=== PATIENT | male | born 1950 | race Caucasian/White ===

== ENCOUNTER 2022-07-19 12:19 | Inpatient (IN) | payer OTHER ==
[2022-07-19 13:05] VITALS: BMI 20.5
[2022-07-19] MEDS ORDERED: VANCOMYCIN 1 GM in D5W (PRE-DOCKED) 1,000 MG/250 ML IVPB ONE (13:17)
[2022-07-19] MEDS ORDERED: PIPERACILLIN/TAZOB 4.5 GM 4.5 GM in DEXTROSE 5%-WATER 100 ML IVPB ONE (13:17)
[2022-07-19] MEDS ORDERED: SODIUM CHLORIDE 0.9% 1000 ML INFUS.BAG IV ONE (13:18)
[2022-07-19] MEDS ORDERED: PIPERACILLIN/TAZOB 4.5 GM 4.5 GM/100 ML BAG IVPB ONE (13:30)
[2022-07-19 14:05] LABS: HEMATOCRIT 31.7 % (35.4-49); HEMOGLOBIN 10.6 GM/dL (11.7-16.9); MCH 31.6 pg (25.7-33.7); MCHC 33.4 g/dl (32.0-35.9); MEAN CELL VOLUME 94.7 fl (80-96); MEAN PLT VOLUME 7.8 fl (7.5-11.1); PLATELET COUNT 277 10^3/uL (134-434); RBC 3.35 M/mm3 (4.00-5.60); RDW 16.9 % (11.9-15.9)
[2022-07-19 14:07] LABS: VENOUS BASE EXCESS 6.4 mmol/L (-2-2); VENOUS O2 SATURATION 93.5 % (70-80); VENOUS PCO2 40.8 mmHg (38-52); VENOUS PH 7.489 (7.310-7.410)
[2022-07-19 14:11] LABS: INR 1.23 (0.83-1.09); PROTHROMBIN TIME (PATIENT) 14.2 SEC (9.7-13.0)
[2022-07-19] MEDS ORDERED: VANCOMYCIN/WATER FOR INJ (PEG) 1,000 MG/200 ML BAG IVPB ONE (14:18)
[2022-07-19 14:42] LABS: ALBUMIN 2.7 g/dl (3.4-5.0); CALCIUM 9.7 mg/dL (8.5-10.1)
[2022-07-19 14:43] LABS: BLOOD UREA NITROGEN 38.8 mg/dL (7-18)
[2022-07-19 14:45] LABS: CREATININE 0.9 mg/dL (0.55-1.3)
[2022-07-19 14:47] LABS: BILIRUBIN,TOTAL 0.3 mg/dL (0.2-1); TOT PROT 7.3 g/dl (6.4-8.2)
[2022-07-19 15:33] LABS: ANISOCYTOSIS 2+; MACROCYTOSIS 0
[2022-07-19] MEDS ORDERED: LACTATED RINGERS SOLUTION 1,000 ML/1,000 ML INFUS.BAG IV SCH (18:15)
[2022-07-19 19:14] LABS: EPI CELLS 7 /uL (0-25.1); HYALINE CASTS 1 /uL (0-3.1); PH,URINE 5.5 (5.0-8.0); URINE APPEARANCE CLEAR; URINE BACTERIA 5 /uL (0-1359); URINE BILIRUBIN NEGATIVE (NEGATIVE); URINE COLOR YELLOW; URINE GLUCOSE (UA) NEGATIVE (NEGATIVE); URINE KETONE NEGATIVE (NEGATIVE); URINE LEUK ESTERASE TRACE (NEGATIVE); URINE NITRITE NEGATIVE (NEGATIVE); URINE PROTEIN TRACE (NEGATIVE); URINE RBC 49 /uL (0-23.9); URINE UROBILINOGEN 0.2 mg/dL (0.2-1.0); URINE WBC 44 /uL (0-25.8)
[2022-07-19] MEDS ORDERED: DEXTROSE 5%-NORMAL SALINE 1,000 ML IV SCH (20:45)
[2022-07-19] MEDS ORDERED: PIPERACILLIN/TAZOB 3.375 GM 3.375 GM/50 ML BAG IVPB ONE (23:55)
[2022-07-19] MEDS ORDERED: MELATONIN 5 MG TABLETS NR PRN (23:58)
[2022-07-20] MEDS: PIPERACILLIN/TAZOB 3.375 GM 3.375 GM in DEXTROSE 5%-WATER - 50 ML IVPB SCH ×4 (00:22→17:20)
[2022-07-20] MEDS: ALBUTEROL SO4 2.5/IPRATROPIUM 0.5 INH SOL 3 ML VIAL.NEB. NEB SCH ×5 (00:22→19:48)
[2022-07-20] MEDS ORDERED: ACETAMINOPHEN INJECTION 100 ML IVPB ONE (01:53)
[2022-07-20] MEDS: ACETAMINOPHEN 1000 MG/100 ML BAG IVPB PRN ×2 (01:53→14:00)
[2022-07-20] MEDS ORDERED: ENOXAPARIN NA (PORCINE) 80 MG/0.8 ML DISP.SYRIN SQ ONE (01:55)
[2022-07-20] MEDS: ENOXAPARIN NA (PORCINE) 80 MG/0.8 ML DISP.SYRIN SQ SCH ×2 (01:56→13:45)
[2022-07-20] MEDS ORDERED: VANCOMYCIN/WATER FOR INJ (PEG) 1,000 MG/200 ML BAG IVPB SCH (02:00)
[2022-07-20] MEDS ORDERED: VANCOMYCIN/WATER FOR INJ (PEG) 1,000 MG/200 ML BAG IVPB ONE (03:19)
[2022-07-20] MEDS ORDERED: ALBUTEROL SO4 2.5/IPRATROPIUM 0.5 INH SOL 3 ML VIAL.NEB. NEB ONE (06:45)
[2022-07-20] MEDS ORDERED: PIPERACILLIN/TAZOB 3.375 GM 3.375 GM/50 ML BAG IVPB ONE (07:54)
[2022-07-20] MEDS ORDERED: PIPERACILLIN/TAZOB 3.375 GM 3.375 GM in DEXTROSE 5%-WATER - 50 ML IVPB SCH (08:00)
[2022-07-20] MEDS: ARTIFICIAL TEARS (POLYVINYL ALCOHOL) OPTH DROPS OU SCH ×3 (08:00→23:05)
[2022-07-20 08:33] LABS: HEMATOCRIT 29.5 % (35.4-49); MCHC 34.1 g/dl (32.0-35.9); MEAN CELL VOLUME 94.1 fl (80-96); PLATELET COUNT 260 10^3/uL (134-434); RBC 3.13 M/mm3 (4.00-5.60); RDW 16.4 % (11.9-15.9); WHITE BLOOD COUNT 5.4 K/mm3 (4.0-10.0)
[2022-07-20 08:49] LABS: CALCIUM 9.4 mg/dL (8.5-10.1)
[2022-07-20 08:50] LABS: BLOOD UREA NITROGEN 35.1 mg/dL (7-18)
[2022-07-20 08:53] LABS: CREATININE 0.9 mg/dL (0.55-1.3)
[2022-07-20 09:14] LABS: ANISOCYTOSIS 0; HELMET CELLS 0; HOWELL-JOLLY BODIES 0; MACROCYTOSIS 0; OVALOCYTE 0; ROULEAU 0; SICKELED CELLS 0; TARGET CELLS 0; TEAR DROP CELLS 0; TOXIC GRANULATION 0
[2022-07-20] MEDS ORDERED: buPROPion HCL 75 MG TABLET GT SCH (10:00)
[2022-07-20] MEDS: MULTIVIT-MINERALS ORAL LIQUID GT SCH (11:04)
[2022-07-20] MEDS: SENNOSIDES 8.8 MG/5 ML SYRUP GT SCH ×2 (11:04→23:04)
[2022-07-20] MEDS: CARBIDOPA/LEVODOPA 25/100 TABLET (FP) GT SCH ×3 (14:01→23:06)
[2022-07-20] MEDS: VANCOMYCIN 1 GM in D5W (PRE-DOCKED) 1,000 MG/250 ML IVPB SCH ×2 (16:04→16:06)
[2022-07-20] MEDS: D5-1/2NS+10 MEQ KCL - 10 MEQ/1,000 ML INFUS.BAG IV SCH (18:35)
[2022-07-20] MEDS: ENOXAPARIN NA (PORCINE) 60 MG/0.6 ML DISP.SYRIN SQ SCH (23:05)
[2022-07-20] MEDS: POLYETHYLENE GLYCOL (HEALTHYLAX) 3350 17 GM PACKET GT SCH (23:06)
[2022-07-21] MEDS: PIPERACILLIN/TAZOB 3.375 GM 3.375 GM in DEXTROSE 5%-WATER - 50 ML IVPB SCH ×3 (01:36→18:52)
[2022-07-21] MEDS: D5-1/2NS+10 MEQ KCL - 10 MEQ/1,000 ML INFUS.BAG IV SCH ×2 (06:25→18:55)
[2022-07-21] MEDS: ARTIFICIAL TEARS (POLYVINYL ALCOHOL) OPTH DROPS OU SCH ×3 (06:54→22:44)
[2022-07-21] MEDS: ALBUTEROL SO4 2.5/IPRATROPIUM 0.5 INH SOL 3 ML VIAL.NEB. NEB SCH ×4 (08:15→19:56)
[2022-07-21 10:26] LABS: MAGNESIUM 2.3 mg/dL (1.8-2.4)
[2022-07-21 10:29] LABS: CALCIUM 9.1 mg/dL (8.5-10.1)
[2022-07-21 10:30] LABS: ALBUMIN 2.5 g/dl (3.4-5.0); BLOOD UREA NITROGEN 25.6 mg/dL (7-18)
[2022-07-21 10:33] LABS: CREATININE 0.8 mg/dL (0.55-1.3)
[2022-07-21 10:34] LABS: BILIRUBIN,TOTAL 0.6 mg/dL (0.2-1)
[2022-07-21] MEDS: COLLAGENASE CLOSTRIDIUM HIST. 30 GRAMS TUBE TP SCH (10:51)
[2022-07-21] MEDS: BACITRACIN ZINC 15 GM TUBE TOPICAL OINTMENT TP SCH (10:51)
[2022-07-21] MEDS: CARBIDOPA/LEVODOPA 25/100 TABLET (FP) GT SCH ×4 (10:52→22:42)
[2022-07-21] MEDS: MULTIVIT-MINERALS ORAL LIQUID GT SCH (10:52)
[2022-07-21] MEDS: ENOXAPARIN NA (PORCINE) 60 MG/0.6 ML DISP.SYRIN SQ SCH ×2 (10:53→22:43)
[2022-07-21] MEDS: SENNOSIDES 8.8 MG/5 ML SYRUP GT SCH ×2 (11:09→22:43)
[2022-07-21] MEDS: AMINO ACIDS/PROTEIN HYDROLYS 30 ML LIQUID.PKT GT SCH (18:52)
[2022-07-21] MEDS: POLYETHYLENE GLYCOL (HEALTHYLAX) 3350 17 GM PACKET GT SCH (22:43)
[2022-07-22] MEDS: PIPERACILLIN/TAZOB 3.375 GM 3.375 GM in DEXTROSE 5%-WATER - 50 ML IVPB SCH ×3 (02:03→17:53)
[2022-07-22] MEDS: ARTIFICIAL TEARS (POLYVINYL ALCOHOL) OPTH DROPS OU SCH ×3 (06:58→21:56)
[2022-07-22] MEDS: ALBUTEROL SO4 2.5/IPRATROPIUM 0.5 INH SOL 3 ML VIAL.NEB. NEB SCH ×4 (07:35→20:02)
[2022-07-22] MEDS: SENNOSIDES 8.8 MG/5 ML SYRUP GT SCH ×2 (09:31→21:56)
[2022-07-22] MEDS: MULTIVIT-MINERALS ORAL LIQUID GT SCH (09:31)
[2022-07-22] MEDS: AMINO ACIDS/PROTEIN HYDROLYS 30 ML LIQUID.PKT GT SCH ×3 (09:31→17:52)
[2022-07-22] MEDS: CARBIDOPA/LEVODOPA 25/100 TABLET (FP) GT SCH ×4 (09:32→21:56)
[2022-07-22] MEDS: ASCORBIC ACID 500 MG TABLET (FP) GT SCH (09:32)
[2022-07-22] MEDS: COLLAGENASE CLOSTRIDIUM HIST. 30 GRAMS TUBE TP SCH (09:33)
[2022-07-22] MEDS: BACITRACIN ZINC 15 GM TUBE TOPICAL OINTMENT TP SCH (09:34)
[2022-07-22] MEDS: ENOXAPARIN NA (PORCINE) 60 MG/0.6 ML DISP.SYRIN SQ SCH ×2 (10:12→21:56)
[2022-07-22] MEDS: D5-1/2NS+10 MEQ KCL - 10 MEQ/1,000 ML INFUS.BAG IV SCH (17:52)
[2022-07-22] MEDS: POLYETHYLENE GLYCOL (HEALTHYLAX) 3350 17 GM PACKET GT SCH (21:56)
[2022-07-23] MEDS: D5-1/2NS+10 MEQ KCL - 10 MEQ/1,000 ML INFUS.BAG IV SCH (00:17)
[2022-07-23] MEDS ORDERED: PIPERACILLIN/TAZOBACTAM 3.375 GM VIAL IVPB ONE (02:48)
[2022-07-23] MEDS: PIPERACILLIN/TAZOB 3.375 GM 3.375 GM in DEXTROSE 5%-WATER - 50 ML IVPB SCH ×2 (02:53→09:34)
[2022-07-23] MEDS: ARTIFICIAL TEARS (POLYVINYL ALCOHOL) OPTH DROPS OU SCH ×3 (06:23→22:55)
[2022-07-23] MEDS: ALBUTEROL SO4 2.5/IPRATROPIUM 0.5 INH SOL 3 ML VIAL.NEB. NEB SCH ×4 (07:42→19:41)
[2022-07-23 08:57] LABS: HEMATOCRIT 31.4 % (35.4-49); HEMOGLOBIN 10.7 GM/dL (11.7-16.9); MCH 31.8 pg (25.7-33.7); MEAN CELL VOLUME 93.5 fl (80-96); MEAN PLT VOLUME 8.1 fl (7.5-11.1); PLATELET COUNT 238 10^3/uL (134-434); RBC 3.35 M/mm3 (4.00-5.60); RDW 15.9 % (11.9-15.9)
[2022-07-23 09:18] LABS: ALBUMIN 2.6 g/dl (3.4-5.0); BLOOD UREA NITROGEN 25.5 mg/dL (7-18); CALCIUM 9.3 mg/dL (8.5-10.1)
[2022-07-23 09:22] LABS: BILIRUBIN,TOTAL 0.2 mg/dL (0.2-1); CREATININE 0.7 mg/dL (0.55-1.3); TOT PROT 6.8 g/dl (6.4-8.2)
[2022-07-23] MEDS: MULTIVIT-MINERALS ORAL LIQUID GT SCH (09:26)
[2022-07-23] MEDS: AMINO ACIDS/PROTEIN HYDROLYS 30 ML LIQUID.PKT GT SCH ×3 (09:26→17:50)
[2022-07-23] MEDS: SENNOSIDES 8.8 MG/5 ML SYRUP GT SCH ×2 (09:27→22:56)
[2022-07-23] MEDS: ASCORBIC ACID 500 MG TABLET (FP) GT SCH (09:27)
[2022-07-23] MEDS: CARBIDOPA/LEVODOPA 25/100 TABLET (FP) GT SCH ×4 (09:27→22:56)
[2022-07-23] MEDS: ENOXAPARIN NA (PORCINE) 60 MG/0.6 ML DISP.SYRIN SQ SCH ×2 (09:29→22:56)
[2022-07-23] MEDS: COLLAGENASE CLOSTRIDIUM HIST. 30 GRAMS TUBE TP SCH (10:48)
[2022-07-23] MEDS: BACITRACIN ZINC 15 GM TUBE TOPICAL OINTMENT TP SCH (10:48)
[2022-07-23] MEDS: NEUPRO TD SCH (17:48)
[2022-07-23] MEDS: AMOX TR/POTASSIUM CLAVULANATE 400 MG/5 ML BOTTLE GT SCH (17:50)
[2022-07-23] MEDS: POLYETHYLENE GLYCOL (HEALTHYLAX) 3350 17 GM PACKET GT SCH (22:56)
[2022-07-24] MEDS: ARTIFICIAL TEARS (POLYVINYL ALCOHOL) OPTH DROPS OU SCH ×3 (06:52→22:29)
[2022-07-24] MEDS: ALBUTEROL SO4 2.5/IPRATROPIUM 0.5 INH SOL 3 ML VIAL.NEB. NEB SCH ×4 (07:48→20:17)
[2022-07-24] MEDS: AMINO ACIDS/PROTEIN HYDROLYS 30 ML LIQUID.PKT GT SCH ×3 (09:19→18:21)
[2022-07-24] MEDS: CARBIDOPA/LEVODOPA 25/100 TABLET (FP) GT SCH ×4 (09:19→22:30)
[2022-07-24] MEDS: NEUPRO TD SCH (09:20)
[2022-07-24] MEDS: MULTIVIT-MINERALS ORAL LIQUID GT SCH (09:20)
[2022-07-24] MEDS: BACITRACIN ZINC 15 GM TUBE TOPICAL OINTMENT TP SCH (09:20)
[2022-07-24] MEDS: COLLAGENASE CLOSTRIDIUM HIST. 30 GRAMS TUBE TP SCH (09:21)
[2022-07-24] MEDS: ASCORBIC ACID 500 MG TABLET (FP) GT SCH (09:21)
[2022-07-24] MEDS: SENNOSIDES 8.8 MG/5 ML SYRUP GT SCH ×2 (09:21→22:30)
[2022-07-24] MEDS: AMOX TR/POTASSIUM CLAVULANATE 400 MG/5 ML BOTTLE GT SCH ×2 (09:23→18:21)
[2022-07-24] MEDS: ENOXAPARIN NA (PORCINE) 60 MG/0.6 ML DISP.SYRIN SQ SCH ×2 (09:24→22:29)
[2022-07-24] MEDS: POLYETHYLENE GLYCOL (HEALTHYLAX) 3350 17 GM PACKET GT SCH (22:30)
[2022-07-25] MEDS: ARTIFICIAL TEARS (POLYVINYL ALCOHOL) OPTH DROPS OU SCH ×3 (07:29→23:02)
[2022-07-25] MEDS: ALBUTEROL SO4 2.5/IPRATROPIUM 0.5 INH SOL 3 ML VIAL.NEB. NEB SCH ×2 (07:45→11:56)
[2022-07-25] MEDS: AMOX TR/POTASSIUM CLAVULANATE 400 MG/5 ML BOTTLE GT SCH ×2 (10:12→18:01)
[2022-07-25] MEDS: CARBIDOPA/LEVODOPA 25/100 TABLET (FP) GT SCH ×4 (10:12→23:02)
[2022-07-25] MEDS: AMINO ACIDS/PROTEIN HYDROLYS 30 ML LIQUID.PKT GT SCH ×3 (10:12→18:01)
[2022-07-25] MEDS: ASCORBIC ACID 500 MG TABLET (FP) GT SCH (10:12)
[2022-07-25] MEDS: COLLAGENASE CLOSTRIDIUM HIST. 30 GRAMS TUBE TP SCH (10:13)
[2022-07-25] MEDS: ENOXAPARIN NA (PORCINE) 60 MG/0.6 ML DISP.SYRIN SQ SCH ×2 (10:13→23:02)
[2022-07-25] MEDS: MULTIVIT-MINERALS ORAL LIQUID GT SCH (10:13)
[2022-07-25] MEDS: BACITRACIN ZINC 15 GM TUBE TOPICAL OINTMENT TP SCH (10:17)
[2022-07-25] MEDS: NEUPRO TD SCH (10:17)
[2022-07-25] MEDS: SENNOSIDES 8.8 MG/5 ML SYRUP GT SCH ×2 (10:57→23:02)
[2022-07-25] MEDS: POLYETHYLENE GLYCOL (HEALTHYLAX) 3350 17 GM PACKET GT SCH (23:02)
[2022-07-26] MEDS: ARTIFICIAL TEARS (POLYVINYL ALCOHOL) OPTH DROPS OU SCH ×3 (06:44→21:26)
[2022-07-26] MEDS: MULTIVIT-MINERALS ORAL LIQUID GT SCH (09:40)
[2022-07-26] MEDS: CARBIDOPA/LEVODOPA 25/100 TABLET (FP) GT SCH ×4 (09:43→21:34)
[2022-07-26] MEDS: NEUPRO TD SCH (09:43)
[2022-07-26] MEDS: SENNOSIDES 8.8 MG/5 ML SYRUP GT SCH ×2 (09:43→21:34)
[2022-07-26] MEDS: BACITRACIN ZINC 15 GM TUBE TOPICAL OINTMENT TP SCH (09:44)
[2022-07-26] MEDS: AMINO ACIDS/PROTEIN HYDROLYS 30 ML LIQUID.PKT GT SCH ×3 (09:44→17:44)
[2022-07-26] MEDS: COLLAGENASE CLOSTRIDIUM HIST. 30 GRAMS TUBE TP SCH (09:45)
[2022-07-26] MEDS: ENOXAPARIN NA (PORCINE) 60 MG/0.6 ML DISP.SYRIN SQ SCH ×2 (09:45→21:35)
[2022-07-26] MEDS: ASCORBIC ACID 500 MG TABLET (FP) GT SCH (09:45)
[2022-07-26] MEDS: AMOX TR/POTASSIUM CLAVULANATE 400 MG/5 ML BOTTLE GT SCH ×2 (09:47→17:45)
[2022-07-26] MEDS: POLYETHYLENE GLYCOL (HEALTHYLAX) 3350 17 GM PACKET GT SCH (21:26)
[2022-07-27] MEDS: ARTIFICIAL TEARS (POLYVINYL ALCOHOL) OPTH DROPS OU SCH ×3 (06:20→21:01)
[2022-07-27] MEDS: AMINO ACIDS/PROTEIN HYDROLYS 30 ML LIQUID.PKT GT SCH ×3 (11:17→17:05)
[2022-07-27] MEDS: ASCORBIC ACID 500 MG TABLET (FP) GT SCH (11:17)
[2022-07-27] MEDS: ENOXAPARIN NA (PORCINE) 60 MG/0.6 ML DISP.SYRIN SQ SCH ×2 (11:17→21:50)
[2022-07-27] MEDS: CARBIDOPA/LEVODOPA 25/100 TABLET (FP) GT SCH ×4 (11:18→21:02)
[2022-07-27] MEDS: MULTIVIT-MINERALS ORAL LIQUID GT SCH (11:18)
[2022-07-27] MEDS: SENNOSIDES 8.8 MG/5 ML SYRUP GT SCH ×2 (11:19→21:02)
[2022-07-27] MEDS: AMOX TR/POTASSIUM CLAVULANATE 400 MG/5 ML BOTTLE GT SCH ×2 (11:30→17:05)
[2022-07-27] MEDS: NEUPRO TD SCH (11:37)
[2022-07-27] MEDS: COLLAGENASE CLOSTRIDIUM HIST. 30 GRAMS TUBE TP SCH (16:25)
[2022-07-27] MEDS: BACITRACIN ZINC 15 GM TUBE TOPICAL OINTMENT TP SCH (16:25)
[2022-07-27] MEDS ORDERED: ACETAMINOPHEN 650 MG/20.3 ML ORAL SOLUTION (CUPS) GT ONE (20:26)
[2022-07-27] MEDS: POLYETHYLENE GLYCOL (HEALTHYLAX) 3350 17 GM PACKET GT SCH (21:02)
[2022-07-28] MEDS: ARTIFICIAL TEARS (POLYVINYL ALCOHOL) OPTH DROPS OU SCH ×3 (05:52→21:47)
[2022-07-28] MEDS: MULTIVIT-MINERALS ORAL LIQUID GT SCH (09:31)
[2022-07-28] MEDS: CARBIDOPA/LEVODOPA 25/100 TABLET (FP) GT SCH ×4 (09:31→21:41)
[2022-07-28] MEDS: ASCORBIC ACID 500 MG TABLET (FP) GT SCH (09:31)
[2022-07-28] MEDS: ENOXAPARIN NA (PORCINE) 60 MG/0.6 ML DISP.SYRIN SQ SCH ×2 (09:31→21:43)
[2022-07-28] MEDS: SENNOSIDES 8.8 MG/5 ML SYRUP GT SCH ×2 (09:31→21:40)
[2022-07-28] MEDS: AMINO ACIDS/PROTEIN HYDROLYS 30 ML LIQUID.PKT GT SCH ×3 (09:31→16:42)
[2022-07-28] MEDS: AMOX TR/POTASSIUM CLAVULANATE 400 MG/5 ML BOTTLE GT SCH ×2 (10:58→16:44)
[2022-07-28] MEDS: COLLAGENASE CLOSTRIDIUM HIST. 30 GRAMS TUBE TP SCH (16:42)
[2022-07-28] MEDS: BACITRACIN ZINC 15 GM TUBE TOPICAL OINTMENT TP SCH (16:43)
[2022-07-28] MEDS: NEUPRO TD SCH (18:41)
[2022-07-28] MEDS: POLYETHYLENE GLYCOL (HEALTHYLAX) 3350 17 GM PACKET GT SCH (21:40)
[2022-07-29] MEDS: ARTIFICIAL TEARS (POLYVINYL ALCOHOL) OPTH DROPS OU SCH ×3 (06:03→21:15)
[2022-07-29] MEDS: ASCORBIC ACID 500 MG TABLET (FP) GT SCH (09:48)
[2022-07-29] MEDS: CARBIDOPA/LEVODOPA 25/100 TABLET (FP) GT SCH ×4 (09:48→21:15)
[2022-07-29] MEDS: AMOX TR/POTASSIUM CLAVULANATE 400 MG/5 ML BOTTLE GT SCH ×2 (09:49→17:55)
[2022-07-29] MEDS: MULTIVIT-MINERALS ORAL LIQUID GT SCH (09:49)
[2022-07-29] MEDS: AMINO ACIDS/PROTEIN HYDROLYS 30 ML LIQUID.PKT GT SCH ×3 (09:49→17:55)
[2022-07-29] MEDS: ENOXAPARIN NA (PORCINE) 60 MG/0.6 ML DISP.SYRIN SQ SCH ×2 (09:50→21:16)
[2022-07-29] MEDS: SENNOSIDES 8.8 MG/5 ML SYRUP GT SCH ×2 (09:50→21:16)
[2022-07-29] MEDS: NEUPRO TD SCH (09:50)
[2022-07-29] MEDS: BACITRACIN ZINC 15 GM TUBE TOPICAL OINTMENT TP SCH (09:51)
[2022-07-29] MEDS: COLLAGENASE CLOSTRIDIUM HIST. 30 GRAMS TUBE TP SCH (13:40)
[2022-07-29] MEDS: POLYETHYLENE GLYCOL (HEALTHYLAX) 3350 17 GM PACKET GT SCH (21:17)
[2022-07-29 22:24] VITALS: BP 119/71; PULSE 94; RESP 19; TEMP 98
== END 2022-07-29 23:30 | DRG 177 ==
LOC: JER 12:19 → JERBED 18:55 → J8W 07-20 09:18
PROVIDERS: ADMIT Internal Medicine; ATTEND Family Medicine
DX: J69.0 Pneumonitis due to inhalation of food and vomit (principal); G93.41 Metabolic encephalopathy; L89.153 Pressure ulcer of sacral region, stage 3; E87.0 Hyperosmolality and hypernatremia; N17.9 Acute kidney failure, unspecified; N39.0 Urinary tract infection, site not specified; R44.3 Hallucinations, unspecified; R64 Cachexia; G20 Parkinson's disease; R50.9 Fever, unspecified; L89.312 Pressure ulcer of right buttock, stage 2; R13.10 Dysphagia, unspecified; K59.00 Constipation, unspecified; E86.0 Dehydration; Z98.890 Other specified postprocedural states; Z93.1 Gastrostomy status; Z86.718 Personal history of other venous thrombosis and embolism; Z68.20 Body mass index [BMI] 20.0-20.9, adult
CPT/HCPCS: 0241U-QW; 36415; 71045-TC-FY; 80048; 80053; 81003; 82550; 82607; 82803; 83605; 83735; 84443; 84484; 85025; 85027; 85610; 85730; 86850; 86900; 86901; 87040; 87086; 93005; 93010; 94640; 97161-GP; 99285-25; C9803-CS; E0372; U0003; U0005

== ENCOUNTER 2022-12-06 14:44 | Inpatient (IN) | payer OTHER, BC ==
[2022-12-06] MEDS ORDERED: SODIUM CHLORIDE 1,000 ML IV STA ×2 (15:29→17:32)
[2022-12-06] MEDS ORDERED: VANCOMYCIN 1,000 MG in DEXTROSE 5%-WATER - 250 ML IVPB ONE (15:29)
[2022-12-06] MEDS ORDERED: ACETAMINOPHEN 1000 MG/100 ML BAG IVPB ONE (15:29)
[2022-12-06] MEDS ORDERED: PIPERACILLIN/TAZOB 3.375 GM 3.375 GM in DEXTROSE 5%-WATER - 50 ML IVPB ONE (15:29)
[2022-12-06] MEDS ORDERED: ACETAMINOPHEN INJECTION 100 ML IVPB ONE (16:03)
[2022-12-06] MEDS ORDERED: PIPERACILLIN/TAZOB 4.5 GM 4.5 GM in DEXTROSE 5%-WATER 100 ML IVPB ONE (16:03)
[2022-12-06 16:13] LABS: VENOUS BASE EXCESS 1.5 mmol/L (-2-2); VENOUS O2 SATURATION 69.5 % (70-80); VENOUS PCO2 42.4 mmHg (38-52); VENOUS PH 7.41 (7.310-7.410)
[2022-12-06 16:19] LABS: BASO % 0.2 % (0-2.0); EOS % 0.6 % (0-4.5); HEMATOCRIT 28.5 % (35.4-49); HEMOGLOBIN 9.5 GM/dL (11.7-16.9); LYMPH % 14.1 % (8-40); MCH 31.9 pg (25.7-33.7); MCHC 33.2 g/dl (32.0-35.9); MEAN PLT VOLUME 8.4 fl (7.5-11.1); MONO % 4.2 % (3.8-10.2); NEUT % 80.9 % (42.8-82.8); PLATELET COUNT 396 10^3/uL (134-434); RBC 2.97 M/mm3 (4.00-5.60); RDW 17.2 % (11.9-15.9); WHITE BLOOD COUNT 20.5 K/mm3 (4.0-10.0)
[2022-12-06] MEDS ORDERED: PIPERACILLIN/TAZOB 4.5 GM 4.5 GM/100 ML BAG IVPB ONE (16:29)
[2022-12-06 16:32] LABS: INR 1.51 (0.83-1.09); PROTHROMBIN TIME (PATIENT) 17.5 SEC (9.7-13.0)
[2022-12-06 16:34] LABS: ACTIVATED PTT 37.4 SECONDS (25.2-36.5)
[2022-12-06 17:00] LABS: CHLORIDE 110 mmol/L (98-107); POTASSIUM 4.9 mmol/L (3.5-5.1); SODIUM 144 mmol/L (136-145)
[2022-12-06 17:01] LABS: ANION GAP 6 MMOL/L (8-16); CALCIUM 9.6 mg/dL (8.5-10.1); CO2 28 mmol/L (21-32); GLUCOSE,RANDOM 103 mg/dL (74-106)
[2022-12-06 17:03] LABS: SGPT/ALT 36 U/L (13-61)
[2022-12-06 17:04] LABS: ANISOCYTOSIS 2+; CREATININE 1.5 mg/dL (0.55-1.3); MACROCYTOSIS 1+; SGOT/AST 35 U/L (15-37)
[2022-12-06 17:05] LABS: BILIRUBIN,TOTAL 0.2 mg/dL (0.2-1); TOT PROT 7.6 g/dl (6.4-8.2)
[2022-12-06 17:06] LABS: ALK PHOS 78 U/L (45-117)
[2022-12-06] MEDS ORDERED: VANCOMYCIN/WATER FOR INJ (PEG) 1,000 MG/200 ML BAG IVPB ONE (17:35)
[2022-12-06 20:31] LABS: MAGNESIUM 2.4 mg/dL (1.8-2.4)
[2022-12-06 20:50] LABS: EPI CELLS >36 /uL (0-25.1); HYALINE CASTS 1 /uL (0-3.1); URINE APPEARANCE CLEAR; URINE BACTERIA 78 /uL (0-1359); URINE BILIRUBIN NEGATIVE (NEGATIVE); URINE COLOR YELLOW; URINE GLUCOSE (UA) NEGATIVE (NEGATIVE); URINE KETONE NEGATIVE (NEGATIVE); URINE LEUK ESTERASE 2+ (NEGATIVE); URINE NITRITE NEGATIVE (NEGATIVE); URINE PROTEIN 1+ (NEGATIVE); URINE RBC 497 /uL (0-23.9); URINE WBC 168 /uL (0-25.8)
[2022-12-06] MEDS: CARBIDOPA/LEVODOPA 25/100 TABLET (FP) GT SCH (23:02)
[2022-12-06] MEDS: ACETAMINOPHEN 1000 MG/100 ML BAG IVPB PRN (23:02)
[2022-12-06] MEDS: SODIUM CHLORIDE 1,000 ML IV SCH (23:02)
[2022-12-06] MEDS: HEPARIN NA (PORCINE) 5,000 UNITS/ML 1ML VIAL SQ SCH (23:04)
[2022-12-06] MEDS: CHLORHEXIDINE GLUCONATE 4% CLEANSER FOR DECOLONIZATION TP SCH (23:04)
[2022-12-06] MEDS: MUPIROCIN 2% TOPICAL OINTMENT FOR DECOLONIZATION NS SCH (23:04)
[2022-12-07] MEDS: PIPERACILLIN/TAZOB 3.375 GM 3.375 GM in DEXTROSE 5%-WATER - 50 ML IVPB SCH ×5 (01:37→19:33)
[2022-12-07] MEDS: HEPARIN NA (PORCINE) 5,000 UNITS/ML 1ML VIAL SQ SCH (07:38)
[2022-12-07 07:53] LABS: BASO % 0.3 % (0-2.0); EOS % 2.2 % (0-4.5); HEMATOCRIT 27.2 % (35.4-49); HEMOGLOBIN 8.7 GM/dL (11.7-16.9); MCH 31.5 pg (25.7-33.7); MCHC 32.2 g/dl (32.0-35.9); MEAN PLT VOLUME 8.5 fl (7.5-11.1); MONO % 4.6 % (3.8-10.2); NEUT % 76.9 % (42.8-82.8); PLATELET COUNT 368 10^3/uL (134-434); RBC 2.77 M/mm3 (4.00-5.60)
[2022-12-07 07:59] LABS: POTASSIUM 4.6 mmol/L (3.5-5.1)
[2022-12-07 08:04] LABS: ALBUMIN 1.9 g/dl (3.4-5.0); BLOOD UREA NITROGEN 39.6 mg/dL (7-18); CALCIUM 9.5 mg/dL (8.5-10.1); MAGNESIUM 2.3 mg/dL (1.8-2.4)
[2022-12-07 08:08] LABS: CREATININE 1.2 mg/dL (0.55-1.3); PHOSPHOROUS 2.9 mg/dL (2.5-4.9)
[2022-12-07 08:09] LABS: BILIRUBIN,TOTAL 0.2 mg/dL (0.2-1); TOT PROT 6.6 g/dl (6.4-8.2)
[2022-12-07] MEDS: CARBIDOPA/LEVODOPA 25/100 TABLET (FP) GT SCH ×4 (09:02→21:25)
[2022-12-07] MEDS ORDERED: INSULIN (NOVOLOG) ASPART 100 UNITS/ML 10ML VIAL ONE (10:28)
[2022-12-07] MEDS: MUPIROCIN 2% TOPICAL OINTMENT FOR DECOLONIZATION NS SCH ×2 (10:37→21:25)
[2022-12-07] MEDS: VANCOMYCIN/WATER FOR INJ (PEG) 1,000 MG/200 ML BAG IVPB SCH (10:37)
[2022-12-07] MEDS: ACETAMINOPHEN 1000 MG/100 ML BAG IVPB PRN ×2 (11:54→23:18)
[2022-12-07] MEDS ORDERED: ACETAMINOPHEN 1000 MG/100 ML BAG IVPB PRN (16:39)
[2022-12-07] MEDS ORDERED: VANCOMYCIN/WATER FOR INJ (PEG) 1,000 MG/200 ML BAG IVPB SCH (17:30)
[2022-12-07] MEDS: ENOXAPARIN NA (PORCINE) 40 MG/0.4 ML DISP.SYRIN SQ SCH (21:25)
[2022-12-07] MEDS: CHLORHEXIDINE GLUCONATE 4% CLEANSER FOR DECOLONIZATION TP SCH (21:25)
[2022-12-07] MEDS: SODIUM CHLORIDE 1,000 ML IV SCH (23:19)
[2022-12-08] MEDS: PIPERACILLIN/TAZOB 3.375 GM 3.375 GM in DEXTROSE 5%-WATER - 50 ML IVPB SCH ×3 (02:50→17:28)
[2022-12-08 07:07] LABS: BASO % 0.4 % (0-2.0); EOS % 2.6 % (0-4.5); HEMATOCRIT 26.3 % (35.4-49); HEMOGLOBIN 8.7 GM/dL (11.7-16.9); LYMPH % 16.4 % (8-40); MCH 32.1 pg (25.7-33.7); MEAN PLT VOLUME 8.7 fl (7.5-11.1); MONO % 3.4 % (3.8-10.2); NEUT % 77.2 % (42.8-82.8); PLATELET COUNT 357 10^3/uL (134-434); RBC 2.71 M/mm3 (4.00-5.60); RDW 16.6 % (11.9-15.9)
[2022-12-08 07:25] LABS: POTASSIUM 3.9 mmol/L (3.5-5.1)
[2022-12-08 07:30] LABS: PHOSPHOROUS 2.4 mg/dL (2.5-4.9)
[2022-12-08 07:31] LABS: ALBUMIN 1.8 g/dl (3.4-5.0)
[2022-12-08 07:32] LABS: TOT PROT 6.5 g/dl (6.4-8.2)
[2022-12-08 07:33] LABS: BLOOD UREA NITROGEN 29.6 mg/dL (7-18); CREATININE 0.8 mg/dL (0.55-1.3); MAGNESIUM 2.2 mg/dL (1.8-2.4)
[2022-12-08 07:40] LABS: BILIRUBIN,TOTAL 0.2 mg/dL (0.2-1)
[2022-12-08] MEDS: VANCOMYCIN/WATER FOR INJ (PEG) 1,000 MG/200 ML BAG IVPB SCH (09:24)
[2022-12-08] MEDS: CARBIDOPA/LEVODOPA 25/100 TABLET (FP) GT SCH ×4 (09:25→22:42)
[2022-12-08] MEDS: ENOXAPARIN NA (PORCINE) 40 MG/0.4 ML DISP.SYRIN SQ SCH (09:25)
[2022-12-08] MEDS: MUPIROCIN 2% TOPICAL OINTMENT FOR DECOLONIZATION NS SCH (09:27)
[2022-12-08] MEDS: LACTATED RINGERS SOLUTION 1,000 ML/1,000 ML INFUS.BAG IV SCH (13:31)
[2022-12-08] MEDS: ACETAMINOPHEN 1000 MG/100 ML BAG IVPB PRN (15:17)
[2022-12-08] MEDS ORDERED: CHLORHEXIDINE GLUCONATE 4% CLEANSER FOR DECOLONIZATION TP SCH (22:00)
[2022-12-08] MEDS ORDERED: MUPIROCIN 2% TOPICAL OINTMENT FOR DECOLONIZATION NS SCH (22:00)
[2022-12-08] MEDS: ROTIGOTINE TD SCH ×2 (22:42→22:43)
[2022-12-08] MEDS: ENOXAPARIN NA (PORCINE) 60 MG/0.6 ML DISP.SYRIN SQ SCH (22:42)
[2022-12-08] MEDS: SODIUM HYPOCHLORITE 0.25%- 473 ML BULK BOTTLE TP SCH (22:42)
[2022-12-09] MEDS: PIPERACILLIN/TAZOB 3.375 GM 3.375 GM in DEXTROSE 5%-WATER - 50 ML IVPB SCH ×3 (01:24→17:26)
[2022-12-09] MEDS: ENOXAPARIN NA (PORCINE) 60 MG/0.6 ML DISP.SYRIN SQ SCH ×2 (10:02→22:27)
[2022-12-09] MEDS: ASCORBIC ACID 500 MG/5 ML UNIT DOSE CUP GT SCH (10:03)
[2022-12-09] MEDS: AMINO ACIDS/PROTEIN HYDROLYS 30 ML LIQUID.PKT GT SCH (10:03)
[2022-12-09] MEDS: CARBIDOPA/LEVODOPA 25/100 TABLET (FP) GT SCH ×4 (10:03→22:27)
[2022-12-09] MEDS: SODIUM HYPOCHLORITE 0.25%- 473 ML BULK BOTTLE TP SCH (14:00)
[2022-12-09] MEDS: LACTATED RINGERS SOLUTION 1,000 ML/1,000 ML INFUS.BAG IV SCH (14:13)
[2022-12-09] MEDS ORDERED: ACETAMINOPHEN 650 MG SUPP.RECT RC ONE (22:46)
[2022-12-10] MEDS: PIPERACILLIN/TAZOB 3.375 GM 3.375 GM in DEXTROSE 5%-WATER - 50 ML IVPB SCH ×3 (01:46→17:23)
[2022-12-10 09:13] LABS: BASO % 0.2 % (0-2.0); EOS % 0.7 % (0-4.5); HEMATOCRIT 26.9 % (35.4-49); HEMOGLOBIN 8.9 GM/dL (11.7-16.9); MCH 31.3 pg (25.7-33.7); MCHC 33.1 g/dl (32.0-35.9); MEAN CELL VOLUME 94.6 fl (80-96); MEAN PLT VOLUME 7.6 fl (7.5-11.1); MONO % 6.1 % (3.8-10.2); PLATELET COUNT 419 10^3/uL (134-434); RBC 2.84 M/mm3 (4.00-5.60); RDW 16.9 % (11.9-15.9); WHITE BLOOD COUNT 12.9 K/mm3 (4.0-10.0)
[2022-12-10 09:26] LABS: POTASSIUM 4.1 mmol/L (3.5-5.1)
[2022-12-10 09:28] LABS: BLOOD UREA NITROGEN 17.9 mg/dL (7-18); CALCIUM 8.9 mg/dL (8.5-10.1)
[2022-12-10 09:31] LABS: CREATININE 0.7 mg/dL (0.55-1.3)
[2022-12-10 09:33] LABS: BILIRUBIN,TOTAL 0.1 mg/dL (0.2-1)
[2022-12-10] MEDS: ENOXAPARIN NA (PORCINE) 60 MG/0.6 ML DISP.SYRIN SQ SCH ×2 (10:10→21:20)
[2022-12-10] MEDS: ASCORBIC ACID 500 MG/5 ML UNIT DOSE CUP GT SCH (10:10)
[2022-12-10] MEDS: CARBIDOPA/LEVODOPA 25/100 TABLET (FP) GT SCH ×4 (10:10→21:19)
[2022-12-10] MEDS: AMINO ACIDS/PROTEIN HYDROLYS 30 ML LIQUID.PKT GT SCH (10:11)
[2022-12-10] MEDS: ACETAMINOPHEN 650 MG/20.3 ML ORAL SOLUTION (CUPS) PEG PRN ×3 (13:10→22:04)
[2022-12-10] MEDS: LACTATED RINGERS SOLUTION 1,000 ML/1,000 ML INFUS.BAG IV SCH (13:12)
[2022-12-10] MEDS: SODIUM HYPOCHLORITE 0.25%- 473 ML BULK BOTTLE TP SCH (15:49)
[2022-12-11] MEDS: PIPERACILLIN/TAZOB 3.375 GM 3.375 GM in DEXTROSE 5%-WATER - 50 ML IVPB SCH ×3 (02:14→17:25)
[2022-12-11] MEDS: ACETAMINOPHEN 650 MG/20.3 ML ORAL SOLUTION (CUPS) PEG PRN ×4 (05:55→22:00)
[2022-12-11] MEDS: AMINO ACIDS/PROTEIN HYDROLYS 30 ML LIQUID.PKT GT SCH ×2 (09:27→17:25)
[2022-12-11] MEDS: ENOXAPARIN NA (PORCINE) 60 MG/0.6 ML DISP.SYRIN SQ SCH ×2 (09:27→21:32)
[2022-12-11] MEDS: CARBIDOPA/LEVODOPA 25/100 TABLET (FP) GT SCH ×4 (09:27→21:32)
[2022-12-11] MEDS: ASCORBIC ACID 500 MG/5 ML UNIT DOSE CUP GT SCH (09:31)
[2022-12-11 09:42] LABS: BASO % 0.3 % (0-2.0); EOS % 1.4 % (0-4.5); HEMATOCRIT 23.5 % (35.4-49); HEMOGLOBIN 7.8 GM/dL (11.7-16.9); LYMPH % 15.6 % (8-40); MCHC 33.1 g/dl (32.0-35.9); MEAN CELL VOLUME 96.5 fl (80-96); MEAN PLT VOLUME 8.2 fl (7.5-11.1); MONO % 4.6 % (3.8-10.2); NEUT % 78.1 % (42.8-82.8); PLATELET COUNT 328 10^3/uL (134-434); RBC 2.44 M/mm3 (4.00-5.60); RDW 16.9 % (11.9-15.9); WHITE BLOOD COUNT 10.5 K/mm3 (4.0-10.0)
[2022-12-11] MEDS: LACTATED RINGERS SOLUTION 1,000 ML/1,000 ML INFUS.BAG IV SCH ×2 (10:42→13:10)
[2022-12-11 10:46] LABS: POTASSIUM 4.2 mmol/L (3.5-5.1)
[2022-12-11 10:49] LABS: ALBUMIN 1.7 g/dl (3.4-5.0); CALCIUM 8.6 mg/dL (8.5-10.1)
[2022-12-11 10:52] LABS: CREATININE 0.7 mg/dL (0.55-1.3)
[2022-12-11 10:54] LABS: BILIRUBIN,TOTAL 0.2 mg/dL (0.2-1); TOT PROT 6.2 g/dl (6.4-8.2)
[2022-12-11] MEDS ORDERED: SODIUM CHLORIDE 0.45% 1,000 ML IV SCH (12:30)
[2022-12-11 14:37] VITALS: BMI 20.3
[2022-12-11] MEDS: SODIUM HYPOCHLORITE 0.25%- 473 ML BULK BOTTLE TP SCH (16:34)
[2022-12-11] MEDS: ROTIGOTINE 4 MG TD SCH (16:35)
[2022-12-12] MEDS: PIPERACILLIN/TAZOB 3.375 GM 3.375 GM in DEXTROSE 5%-WATER - 50 ML IVPB SCH ×3 (01:53→18:07)
[2022-12-12] MEDS: ACETAMINOPHEN 650 MG/20.3 ML ORAL SOLUTION (CUPS) PEG PRN ×3 (01:57→22:46)
[2022-12-12] MEDS: ROTIGOTINE 4 MG TD SCH (07:46)
[2022-12-12] MEDS: AMINO ACIDS/PROTEIN HYDROLYS 30 ML LIQUID.PKT GT SCH ×2 (09:09→18:47)
[2022-12-12] MEDS: CARBIDOPA/LEVODOPA 25/100 TABLET (FP) GT SCH ×4 (09:09→22:27)
[2022-12-12] MEDS: ENOXAPARIN NA (PORCINE) 60 MG/0.6 ML DISP.SYRIN SQ SCH ×2 (09:09→22:28)
[2022-12-12] MEDS: SODIUM HYPOCHLORITE 0.25%- 473 ML BULK BOTTLE TP SCH (09:09)
[2022-12-12] MEDS: ASCORBIC ACID 500 MG/5 ML UNIT DOSE CUP GT SCH (09:09)
[2022-12-12 10:19] LABS: POTASSIUM 4.5 mmol/L (3.5-5.1)
[2022-12-12 10:21] LABS: CALCIUM 8.6 mg/dL (8.5-10.1)
[2022-12-12 10:22] LABS: ALBUMIN 1.7 g/dl (3.4-5.0); BLOOD UREA NITROGEN 20.7 mg/dL (7-18)
[2022-12-12 10:25] LABS: CREATININE 0.6 mg/dL (0.55-1.3)
[2022-12-12 10:26] LABS: BILIRUBIN,TOTAL 0.3 mg/dL (0.2-1)
[2022-12-12 10:27] LABS: TOT PROT 6.4 g/dl (6.4-8.2)
[2022-12-13] MEDS: PIPERACILLIN/TAZOB 3.375 GM 3.375 GM in DEXTROSE 5%-WATER - 50 ML IVPB SCH ×3 (01:39→17:10)
[2022-12-13] MEDS: ACETAMINOPHEN 650 MG/20.3 ML ORAL SOLUTION (CUPS) PEG PRN ×3 (02:55→23:29)
[2022-12-13] MEDS ORDERED: traMADol HCL 50 MG TABLET PEG ONE (04:48)
[2022-12-13] MEDS ORDERED: LIDOCAINE 5% TOPICAL PATCH TP ONE (05:00)
[2022-12-13] MEDS: ASCORBIC ACID 500 MG/5 ML UNIT DOSE CUP GT SCH (09:41)
[2022-12-13] MEDS: ENOXAPARIN NA (PORCINE) 60 MG/0.6 ML DISP.SYRIN SQ SCH ×2 (09:42→23:29)
[2022-12-13] MEDS: CARBIDOPA/LEVODOPA 25/100 TABLET (FP) GT SCH ×4 (09:42→23:29)
[2022-12-13] MEDS: AMINO ACIDS/PROTEIN HYDROLYS 30 ML LIQUID.PKT GT SCH ×2 (09:43→17:09)
[2022-12-13] MEDS: SODIUM HYPOCHLORITE 0.25%- 473 ML BULK BOTTLE TP SCH (09:43)
[2022-12-13 13:34] LABS: BASO % 0.4 % (0-2.0); HEMATOCRIT 25.4 % (35.4-49); HEMOGLOBIN 8.4 GM/dL (11.7-16.9); LYMPH % 24.8 % (8-40); MCH 31.4 pg (25.7-33.7); MCHC 33.3 g/dl (32.0-35.9); MEAN CELL VOLUME 94.3 fl (80-96); MEAN PLT VOLUME 7.6 fl (7.5-11.1); MONO % 7.2 % (3.8-10.2); NEUT % 64.6 % (42.8-82.8); PLATELET COUNT 354 10^3/uL (134-434); RBC 2.69 M/mm3 (4.00-5.60); WHITE BLOOD COUNT 7.9 K/mm3 (4.0-10.0)
[2022-12-13] MEDS ORDERED: PIPERACILLIN/TAZOBACTAM 3.375 GM VIAL IVPB ONE (16:59)
[2022-12-13] MEDS: LIDOCAINE PATCH REMOVAL MC ONE ×2 (17:10→17:21)
[2022-12-14] MEDS: VANCOMYCIN 250 MG/5 ML ORAL SOLUTION GT SCH ×5 (01:30→23:15)
[2022-12-14] MEDS: PIPERACILLIN/TAZOB 3.375 GM 3.375 GM in DEXTROSE 5%-WATER - 50 ML IVPB SCH (02:00)
[2022-12-14] MEDS: CARBIDOPA/LEVODOPA 25/100 TABLET (FP) GT SCH ×4 (09:54→22:03)
[2022-12-14] MEDS: SODIUM HYPOCHLORITE 0.25%- 473 ML BULK BOTTLE TP SCH (09:54)
[2022-12-14] MEDS: AMINO ACIDS/PROTEIN HYDROLYS 30 ML LIQUID.PKT GT SCH (09:54)
[2022-12-14] MEDS: ASCORBIC ACID 500 MG/5 ML UNIT DOSE CUP GT SCH (09:54)
[2022-12-14] MEDS: ENOXAPARIN NA (PORCINE) 60 MG/0.6 ML DISP.SYRIN SQ SCH ×2 (09:54→22:06)
[2022-12-14] MEDS: BANATROL PLUS POWDER PACKET GT SCH (22:03)
[2022-12-14] MEDS: ACETAMINOPHEN 650 MG/20.3 ML ORAL SOLUTION (CUPS) PEG PRN (22:29)
[2022-12-15] MEDS: ACETAMINOPHEN 650 MG/20.3 ML ORAL SOLUTION (CUPS) PEG PRN ×2 (05:14→22:44)
[2022-12-15] MEDS: BANATROL PLUS POWDER PACKET GT SCH ×3 (05:14→22:43)
[2022-12-15] MEDS: VANCOMYCIN 250 MG/5 ML ORAL SOLUTION GT SCH ×4 (05:15→23:31)
[2022-12-15] MEDS: CARBIDOPA/LEVODOPA 25/100 TABLET (FP) GT SCH ×4 (10:00→22:44)
[2022-12-15] MEDS: AMINO ACIDS/PROTEIN HYDROLYS 30 ML LIQUID.PKT GT SCH (10:00)
[2022-12-15] MEDS: LACTOBACILLUS ACIDOPHILUS 1 TABLET PO SCH (10:00)
[2022-12-15] MEDS: ENOXAPARIN NA (PORCINE) 60 MG/0.6 ML DISP.SYRIN SQ SCH ×2 (10:00→22:44)
[2022-12-15] MEDS: SODIUM HYPOCHLORITE 0.25%- 473 ML BULK BOTTLE TP SCH (10:01)
[2022-12-15] MEDS: ASCORBIC ACID 500 MG/5 ML UNIT DOSE CUP GT SCH (10:01)
[2022-12-15 10:46] LABS: POTASSIUM 4.7 mmol/L (3.5-5.1)
[2022-12-15 10:49] LABS: CALCIUM 9.3 mg/dL (8.5-10.1)
[2022-12-15 10:50] LABS: BLOOD UREA NITROGEN 22.3 mg/dL (7-18)
[2022-12-15 10:53] LABS: CREATININE 0.6 mg/dL (0.55-1.3)
[2022-12-15 10:54] LABS: BILIRUBIN,TOTAL 0.2 mg/dL (0.2-1); TOT PROT 7.8 g/dl (6.4-8.2)
[2022-12-16] MEDS: VANCOMYCIN 250 MG/5 ML ORAL SOLUTION GT SCH ×2 (05:18→11:40)
[2022-12-16] MEDS: ACETAMINOPHEN 650 MG/20.3 ML ORAL SOLUTION (CUPS) PEG PRN ×2 (05:18→15:02)
[2022-12-16] MEDS: BANATROL PLUS POWDER PACKET GT SCH ×2 (05:18→15:02)
[2022-12-16] MEDS: LACTOBACILLUS ACIDOPHILUS 1 TABLET PO SCH (10:20)
[2022-12-16] MEDS: CARBIDOPA/LEVODOPA 25/100 TABLET (FP) GT SCH ×2 (10:20→15:03)
[2022-12-16] MEDS: AMINO ACIDS/PROTEIN HYDROLYS 30 ML LIQUID.PKT GT SCH (10:20)
[2022-12-16] MEDS: ASCORBIC ACID 500 MG/5 ML UNIT DOSE CUP GT SCH (10:21)
[2022-12-16] MEDS: ENOXAPARIN NA (PORCINE) 60 MG/0.6 ML DISP.SYRIN SQ SCH (10:21)
[2022-12-16] MEDS: SODIUM HYPOCHLORITE 0.25%- 473 ML BULK BOTTLE TP SCH (10:21)
[2022-12-16 18:05] VITALS: BP 105/54; PULSE 84; RESP 22; TEMP 98.4
== END 2022-12-16 17:40 | disposition hospice, inpatient (51) | DRG 871 ==
LOC: JER 14:44 → JERBED 17:37 → JICU 21:46 → J5S 12-08 18:14 → J8W 12-14 15:48 → UNDODISIN 12-16 17:30
PROVIDERS: ADMIT Internal Medicine Pulmonary Disease; ATTEND Family Medicine
DX: A41.89 Other specified sepsis (principal); E43 Unspecified severe protein-calorie malnutrition; L89.154 Pressure ulcer of sacral region, stage 4; R65.21 Severe sepsis with septic shock; J69.0 Pneumonitis due to inhalation of food and vomit; N17.9 Acute kidney failure, unspecified; E87.0 Hyperosmolality and hypernatremia; N39.0 Urinary tract infection, site not specified; G20 Parkinson's disease; R00.0 Tachycardia, unspecified; R50.9 Fever, unspecified; Z68.21 Body mass index [BMI] 21.0-21.9, adult; Z93.1 Gastrostomy status; Z93.0 Tracheostomy status; Z86.718 Personal history of other venous thrombosis and embolism
CPT/HCPCS: 0241U-QW; 36415; 70450-TC; 71045-TC-FY; 80053; 81003; 82436; 82550; 82553; 82803; 82962; 83605; 83735; 84100; 84133; 84300; 84484; 85025; 85610; 85730; 87040; 87070; 87081; 87086; 87186; 87205; 87324; 87449; 87635; 87899; 93005; 93010; 99285-25; J1644